=== PATIENT | male | born 1950 | race Caucasian/White ===

== ENCOUNTER 2018-03-01 11:58 | Inpatient (IN) ==
[2018-03-01] MEDS ORDERED: Naloxone 0.4 MG/ML INJ IVP PRN (15:19)
[2018-03-01] MEDS ORDERED: Ipratropium/Albuterol Neb 3 ML IH PRN (15:21)
[2018-03-01] MEDS ORDERED: *HR* Dextrose 50 % in Water (Syg) 50 ML SYRINGE IVP PRN ×2 (15:23→18:26)
[2018-03-01] MEDS ORDERED: Insulin Regular, Human 100 UNIT/ML IV PRN (15:23)
[2018-03-01] MEDS ORDERED: D5% in 0.45% NACL 1,000 ML IVC PRN (15:23)
[2018-03-01] MEDS ORDERED: D5% in 0.45% NACL w KCl 20 MEQ/1,000 ML MLS IVC PRN (15:23)
[2018-03-01] MEDS ORDERED: Insulin Human Regular 100 UNIT in 0.9 % Sodium Chloride 100 ML IVC SCH (15:30)
[2018-03-01] MEDS ORDERED: 0.9 % Sodium Chloride w KCl 20 MEQ/1,000 ML MLS IVC SCH ×2 (15:30→18:30)
--- NOTE | 2018-03-01 15:48 | Internal Med History&Physical ---
Date of Encounter: 03/01/18 Time of Encounter: 15:00 Internal Medicine - H&P: HPI Chief complaint: Nausea and dizziness Admitted From: Home Plans for Post Hospital Care: Home History of present illness: Mr. Mena is a 67 year old male presented to [facility] for lightheaded, nausea, and vomiting. Past medical history is significant for hx of CVA with left-sided residual weakness, hypertension, COPD, GERD. Patient has lightheaded and nausea today. He vomited once, no blood in the vomiting. Patient denies fever, sore throat, cough, chest pain, shortness of breath, abdominal pain, diarrhea, or urination symptoms. In the emergency room , he was found sugar level high to 800s. Further tests shows patient meet criteria of DKA. Patient was started with IV fluid and insulin drip and transferred to our hospital for further management. Patient denies history of diabetes. Patient denies recent symptoms of polyuria, polydipsia, or body weight change. I have discussed CODE STATUS with this patient. Patient is AAO 3 and clearly told me that he does not want resuscitation or intubation, DNR/DNI placed. Past Med Surg Social Fam HX - Past Medical History Medical history: COPD, DVT, GERD, hyperlipidemia, hypertension, other Additional medical history: cerebral abscess, ventriculitis, traumatic brain injury, malnutrition, ETOH abuse, meningitis, cholecystitis Psychiatric history: no psych history - Past Surgical History Surgical History: no surgical history - Social History Smoking Status: Former smoker Smokeless Tobacco Status: Yes Alcohol use: heavy Drug use: none - Family History Mother History Unknown: Yes Internal Medicine - H&P: Meds Albuterol Sulfate [Ventolin Hfa] 18 gm IH QID PRN 03/01/18 [History] Atorvastatin [Lipitor] 40 mg PO HS 03/01/18 [History] Duloxetine HCl [Cymbalta] 60 mg PO DAILY 03/01/18 [History] Fluticasone/Umeclidin/Vilanter [Trelegy Ellipta 100-62.5-25] 1 each IH DAILY [History] Gabapentin [Neurontin] 400 mg PO BID 03/01/18 [History] Mirtazapine [Remeron] 15 mg PO HS 03/01/18 [History] Tizanidine HCl [Zanaflex] 4 mg PO TID 03/01/18 [History] amLODIPine [Norvasc] 5 mg PO DAILY 03/01/18 [History] 3 Allergy/AdvReac Type Severity Reaction Status Date / Time No Known Allergies Allergy Verified 11/29/16 15:07 All Systems PM: A 10-system review of systems was performed and is negative for pertinent findings except as documented above in the HPI. - Constitutional Vitals: Temp Pulse Resp BP Pulse Ox 98.5 F 84 18 152/83 95 03/01/18 14:46 03/01/18 14:46 03/01/18 14:46 03/01/18 14:46 03/01/18 14:46 General appearance: Present: A&O X 3, no acute distress, answers questions appropriately Exam: In NAD - Head Head exam: Present: atraumatic, normocephalic - Eye Eye exam: Present: PERRL, conjuntiva pink, sclera anicteric Pupils: Present: PERRL - Neck Neck exam general surgery: Present: supple, trachea midline. Absent: lymphadenopathy - Respiratory Respiratory exam: Present: CTAB, wheezes (Scattered wheezes on left side). Absent: accessory muscle use, rales, rhonchi - Cardiovascular Cardiovascular exam: Present: RRR, +S1, +S2. Absent: diastolic murmur, gallop, rubs, systolic murmur - GI/Abdominal GI/Abdominal exam: Present: normal bowel sounds, soft, no peritoneal signs. Absent: distended, tenderness - Extremities Exam Extremities exam: Present: warm, radial pulses palpable and symmetrical. Absent : calf tenderness, cyanotic, pedal edema - Neurological Exam Neurological exam: Present: CN II-XII intact, motor sensory deficit (Has residual left-sided weakness due to prior CVA, LUE 3/5, LLE 4+/5), oriented X3, no focal deficits. Absent: pronater drift, facial droop, speech deficit - Skin Skin exam: Present: dry, intact - Assessment and plan (1) DKA (diabetic ketoacidoses) Current Visit: Yes Status: Acute Assessment and plan: Patient has high sugar level to 800s. Ketone positive. AG 16. Consider DKA. - Place patient on DKA protocol - IV fluid - Insulin drip - Check glucose level every hour - Check BMP every 4 hours - Closely monitor patient, potassium supplement per BMP results. - Nothing by mouth at this point Qualifiers: Diabetes mellitus type: type 2 Diabetes mellitus complication detail: without coma Qualified Code(s): E11.10 - Type 2 diabetes mellitus with ketoacidosis without coma (2) HTN (hypertension) Current Visit: Yes Status: Acute Assessment and plan: Place patient on hydralazine IV as needed. Resume home medication after start diet Qualifiers: Hypertension type: essential hypertension Qualified Code(s): I10 - Essential (primary) hypertension (3) History of CVA (cerebrovascular accident) Current Visit: Yes Status: Acute Assessment and plan: Continue home medications after verification. May add baby aspirin for antiplatelet. (4) COPD (chronic obstructive pulmonary disease) Current Visit: Yes Status: Acute Assessment and plan: No signs of exacerbation. Place patient on as needed DuoNeb. Qualifiers: COPD type: emphysema Emphysema type: unspecified Qualified Code(s): J43.9 - Emphysema, unspecified (5) GERD (gastroesophageal reflux disease) Current Visit: Yes Status: Acute Assessment and plan: Place patient on Protonix IV 40 mg daily Qualifiers: Esophagitis presence: without esophagitis Qualified Code(s): K21.9 - Gastro -esophageal reflux disease without esophagitis (6) DVT prophylaxis Current Visit: Yes Status: Acute Assessment and plan: Heparin subcutaneously (7) Hyperglycemia Current Visit: No Status: Acute Assessment and plan: No history of diabetes. High sugar level consider newly diagnosed diabetes. - Hemoglobin A1c - C-peptide - Nutrition consult for dietary education - Patient lives alone. Most likely need to start insulin. Consult PT OT and social security specialist. (8) Lactic acidosis Current Visit: No Status: Acute Assessment and plan: Possibly due to severe dehydration caused by DKA. No signs of infection at this point but will continue closely monitor patient. Continue hydration and repeat lactate acid level in 6 hours. - Time Spent With Patient Total time spent is greater than 50% in coordination of care (as documented) at patient's floor/unit and/or counseling patient: 40 minutes Greater than 35 minutes
[2018-03-01 16:46] LABS: BUN/Creatinine Ratio 13 (6-26); Blood Urea Nitrogen 12 mg/dL (8-23); Calcium 9.1 mg/dL (8.6-10.3); Carbon Dioxide 22 mEq/L (23-29); Chloride 109 mEq/L (98-107); Glucose 270 mg/dL (70-105); Osmolality,Calculated 303 (280-300); Potassium 3.4 mEq/L (3.5-5.1); Sodium 142 mEq/L (136-145); eGFR For Non-African Americans > 60 (> 60)
[2018-03-01] MEDS: *HR* Heparin 5,000 UNIT/ML VIAL SQ SCH (17:04)
[2018-03-01] MEDS: Pantoprazole 40 MG VIAL IVP SCH (17:04)
[2018-03-01] MEDS ORDERED: Dextrose Gel 15 GM/37.5 ML TUBE PO PRN ×2 (18:26)
[2018-03-01] MEDS ORDERED: D5% in Water 1,000 ML IVC PRN (18:26)
[2018-03-01] MEDS: Insulin LISPRO 300 UNITS/3 ML VIAL SQ SCH (20:36)
[2018-03-01] MEDS: Insulin DETEMIR 100 UNIT/ML X5UNITS SQ SCH ×2 (21:34→21:58)
[2018-03-02 04:41] LABS: Basophils # 0.1 K/mcL (0.0-0.2); Basophils % 0.6 %; Eosinophils # 0.7 K/mcL (0.0-0.6); Eosinophils % 6.5 %; Hematocrit 46.7 % (37.5-50.1); Hemoglobin 15.9 g/dL (12.9-16.9); Immature Granulocytes % 0.3 % (0-4); Lymphocytes # 2.7 K/mcL (0.6-4.6); Lymphocytes % 25.1 %; Mean Corpuscular Hemoglobin 28.2 pg (28.0-33.3); Mean Corpuscular Volume 82.8 fL (83.0-100.0); Mean Platelet Volume 10.9 fL (9.4-12.4); Monocytes # 0.7 K/mcL (0.0-1.3); Monocytes % 6.8 %; Neutrophils # 6.5 K/mcL (1.6-8.9); Platelet Count 310 K/mcL (140-400); Red Blood Count 5.64 M/mcL (4.19-5.50); Segmented Neutrophils % 60.7 %
[2018-03-02 05:04] LABS: Magnesium 1.9 mg/dL (1.6-2.6); Phosphorous 2.1 mg/dL (2.7-4.5)
[2018-03-02 05:05] LABS: BUN/Creatinine Ratio 12 (6-26); Blood Urea Nitrogen 9 mg/dL (8-23); Calcium 8.6 mg/dL (8.6-10.3); Carbon Dioxide 18 mEq/L (23-29); Chloride 111 mEq/L (98-107); Glucose 185 mg/dL (70-105); Osmolality,Calculated 293 (280-300); Potassium 3.3 mEq/L (3.5-5.1); Sodium 140 mEq/L (136-145); eGFR For Non-African Americans > 60 (> 60)
[2018-03-02] MEDS: *HR* Heparin 5,000 UNIT/ML VIAL SQ SCH ×2 (05:30→16:47)
[2018-03-02 07:19] LABS: Estimated Average Glucose 255 mg/dl; Hemoglobin A1C 10.5 %
[2018-03-02] MEDS: Patient Taking Own Medication 1 EACH IH SCH (08:00)
[2018-03-02] MEDS: Aspirin Enteric Coated 81 MG Tablet PO SCH (08:04)
[2018-03-02] MEDS: Insulin LISPRO 300 UNITS/3 ML VIAL SQ SCH ×4 (08:04→21:13)
[2018-03-02] MEDS: Pantoprazole 40 MG VIAL IVP SCH (08:04)
--- NOTE | 2018-03-02 11:50 | Internal Med Progress Note ---
Hospitalist Progress Note - Encounter Date of Encounter: 03/02/18 Time of Encounter: 09:00 - Subjective Interval History: Patient feels fine. No further nausea or vomiting. Denies abdominal pain. Denies lightheaded or dizziness. - Exam Vitals: Temp Pulse Resp BP Pulse Ox 98.5 F 80 18 122/85 96 03/02/18 11:13 03/02/18 11:13 03/02/18 11:13 03/02/18 11:13 03/02/18 11:13 Exam: Patient is awake alert oriented 3. In no acute distress. HEENT: NC/AT PERRL Neck: Supple, no LAD Lungs: CTA B/L Heart: S1S2, RRR Abd: Soft, NT Ext: No pedal edema Neuro: Left UE/LE residual weakness due to previous CVA - Assessment and Plan (1) DKA (diabetic ketoacidoses) Current Visit: Yes Status: Acute Assessment and Plan: Resolved after treatment. (2) HTN (hypertension) Current Visit: Yes Status: Acute Assessment and Plan: Cont home meds. (3) History of CVA (cerebrovascular accident) Current Visit: Yes Status: Acute Assessment and Plan: Continue home medications liptor, add baby aspirin (4) COPD (chronic obstructive pulmonary disease) Current Visit: Yes Status: Acute Assessment and Plan: No signs of exacerbation. Place patient on as needed DuoNeb. (5) GERD (gastroesophageal reflux disease) Current Visit: Yes Status: Acute Assessment and Plan: omeprazole 20mg po daily (6) DVT prophylaxis Current Visit: Yes Status: Acute Assessment and Plan: Heparin subcutaneously (7) Lactic acidosis Current Visit: No Status: Inactive Assessment and Plan: Resolved after hydration. (8) Newly diagnosed diabetes Current Visit: Yes Status: Acute Assessment and Plan: HbA1C 10.5. Consider newly diagnosed diabetes. - C-peptide is pending, glucose is well controlled on 15 units of Levemir and sliding scale. Most likely type 2 diabetes. - We will place patient on glipizide and metformin, continue sliding scale coverage at this point but plan to completely switched to by mouth medication after dosage adjustment. - Dietitian consult for diabetic education - RN for diabetic education. DVT Prophylaxis: Heparin subcutaneously - Time Spent with Patient Total time spent is greater than 50% in coordination of care (as documented) at patient's floor/unit and/or counseling patient: 30 minutes 25 - 35 minutes Plan of Care Discussed with: patient Internal Medicine: Result - Labs CBC & Chem 7: 03/02/18 04:03 03/02/18 04:03 Labs: Short CBC 03/02/18 Range/Units 04:03 WBC 10.7 (4.3-11.1) K/mcL Hgb 15.9 (12.9-16.9) g/dL Hct 46.7 (37.5-50.1) % Plt Count 310 (140-400) K/mcL Neutrophils # 6.5 (1.6-8.9) K/mcL BMP 03/01/18 03/02/18 16:03 04:03 Sodium 142 D 140 Potassium 3.4 L 3.3 L Chloride 109 H 111 H Carbon Dioxide 22 L 18 L BUN 12 9 Creatinine 0.96 0.76 Glucose 270 H 185 H Calcium 9.1 8.6 Consult Discharge Plan - Plan Referrals: Chloe Delgado MD [Primary Care Provider] - (Patient is from [facility] no PCP appointment needed) (1) DKA (diabetic ketoacidoses) Qualifiers: Diabetes mellitus type: type 2 Diabetes mellitus complication detail: without coma Qualified Code(s): E11.10 - Type 2 diabetes mellitus with ketoacidosis without coma (2) HTN (hypertension) Qualifiers: Hypertension type: essential hypertension Qualified Code(s): I10 - Essential (primary) hypertension (4) COPD (chronic obstructive pulmonary disease) Qualifiers: COPD type: emphysema Emphysema type: unspecified Qualified Code(s): J43.9 - Emphysema, unspecified (5) GERD (gastroesophageal reflux disease) Qualifiers: Esophagitis presence: without esophagitis Qualified Code(s): K21.9 - Gastro- esophageal reflux disease without esophagitis
[2018-03-02] MEDS: *HR* Metformin 500 MG TABLET PO SCH ×2 (11:57→16:46)
[2018-03-02] MEDS: *HR* GlipiZIDE 5 MG TABLET PO SCH ×2 (11:57→16:46)
[2018-03-03] MEDS: *HR* Heparin 5,000 UNIT/ML VIAL SQ SCH ×2 (06:02→16:25)
[2018-03-03 06:26] LABS: Basophils # 0.1 K/mcL (0.0-0.2); Basophils % 0.8 %; Eosinophils # 0.6 K/mcL (0.0-0.6); Eosinophils % 6.3 %; Hematocrit 44.6 % (37.5-50.1); Hemoglobin 15.3 g/dL (12.9-16.9); Immature Granulocytes % 0.3 % (0-4); Lymphocytes # 3.1 K/mcL (0.6-4.6); Lymphocytes % 31.9 %; Mean Corpuscular HGB Conc 34.3 g/dL (31.6-35.5); Mean Corpuscular Hemoglobin 27.5 pg (28.0-33.3); Mean Corpuscular Volume 80.2 fL (83.0-100.0); Mean Platelet Volume 10.4 fL (9.4-12.4); Monocytes # 0.6 K/mcL (0.0-1.3); Monocytes % 6.4 %; Neutrophils # 5.2 K/mcL (1.6-8.9); Platelet Count 305 K/mcL (140-400); Red Blood Count 5.56 M/mcL (4.19-5.50); Red Cell Distribution Width 14.3 % (11.5-14.5); Segmented Neutrophils % 54.3 %
[2018-03-03 06:44] LABS: BUN/Creatinine Ratio 15 (6-26); Blood Urea Nitrogen 12 mg/dL (8-23); Calcium 8.9 mg/dL (8.6-10.3); Carbon Dioxide 17 mEq/L (23-29); Chloride 110 mEq/L (98-107); Glucose 235 mg/dL (70-105); Osmolality,Calculated 293 (280-300); Potassium 3.4 mEq/L (3.5-5.1); Sodium 138 mEq/L (136-145); eGFR For Non-African Americans > 60 (> 60)
[2018-03-03] MEDS ORDERED: *HR* Metformin 850 MG TABLET PO SCH (08:00)
[2018-03-03] MEDS ORDERED: *HR* GlipiZIDE XL (24 HR) 2.5 MG TABLET PO SCH (08:00)
[2018-03-03] MEDS: Aspirin Enteric Coated 81 MG Tablet PO SCH (08:12)
[2018-03-03] MEDS: amLODIPine 5 MG TABLET PO SCH (08:12)
[2018-03-03] MEDS: Insulin LISPRO 300 UNITS/3 ML VIAL SQ SCH ×4 (08:14→20:27)
[2018-03-03] MEDS: Patient Taking Own Medication 1 EACH IH SCH (08:15)
--- NOTE | 2018-03-03 09:41 | Internal Med Progress Note ---
Hospitalist Progress Note - Encounter Date of Encounter: 03/03/18 Time of Encounter: 08:00 - Subjective Interval History: Patient has diarrhea and abd cramping. Will D/C metformin, change to januvia. - Exam Vitals: Temp Pulse Resp BP Pulse Ox 98.8 F 72 18 137/85 94 03/03/18 08:05 03/03/18 08:05 03/03/18 08:05 03/03/18 08:05 03/03/18 08:05 Exam: Patient is awake alert oriented 3. In no acute distress. HEENT: NC/AT PERRL Neck: Supple, no LAD Lungs: CTA B/L Heart: S1S2, RRR Abd: Soft, NT, BS hyperactive Ext: No pedal edema Neuro: Left UE/LE residual weakness due to previous CVA - Assessment and Plan (1) DKA (diabetic ketoacidoses) Current Visit: Yes Status: Acute Assessment and Plan: Resolved after treatment. (2) HTN (hypertension) Current Visit: Yes Status: Acute Assessment and Plan: Cont home meds. (3) History of CVA (cerebrovascular accident) Current Visit: Yes Status: Acute Assessment and Plan: Continue home medications liptor, add baby aspirin. PT/OT evaluation for placement. (4) COPD (chronic obstructive pulmonary disease) Current Visit: Yes Status: Acute Assessment and Plan: No signs of exacerbation. Place patient on as needed DuoNeb. (5) GERD (gastroesophageal reflux disease) Current Visit: Yes Status: Acute Assessment and Plan: omeprazole 20mg po daily (6) DVT prophylaxis Current Visit: Yes Status: Acute Assessment and Plan: Heparin subcutaneously (7) Lactic acidosis Current Visit: No Status: Inactive Assessment and Plan: Resolved after hydration. (8) Newly diagnosed diabetes Current Visit: Yes Status: Acute Assessment and Plan: HbA1C 10.5. Consider newly diagnosed diabetes. - C-peptide is pending, glucose is generally well controlled on po meds and sliding scale. Most likely type 2 diabetes. - Seems not tolerate metformin, switch to januvia. Adjust dose of glipizide, continue sliding scale coverage at this point but plan to completely switched to by mouth medication after dosage adjustment. - Dietitian consult for diabetic education - RN for diabetic education. DVT Prophylaxis: Heparin subcutaneously - Time Spent with Patient Total time spent is greater than 50% in coordination of care (as documented) at patient's floor/unit and/or counseling patient: 30min 25 - 35 minutes Internal Medicine: Result - Labs CBC & Chem 7: 03/03/18 06:12 03/03/18 06:12 Labs: Short CBC 03/03/18 Range/Units 06:12 WBC 9.6 (4.3-11.1) K/mcL Hgb 15.3 (12.9-16.9) g/dL Hct 44.6 (37.5-50.1) % Plt Count 305 (140-400) K/mcL Neutrophils # 5.2 (1.6-8.9) K/mcL BMP 03/03/18 06:12 Sodium 138 Potassium 3.4 L Chloride 110 H Carbon Dioxide 17 L BUN 12 Creatinine 0.82 Glucose 235 H Calcium 8.9 Consult Discharge Plan - Plan Referrals: Chloe Delgado MD [Primary Care Provider] - (Patient is from [facility] no PCP appointment needed) (1) DKA (diabetic ketoacidoses) Qualifiers: Diabetes mellitus type: type 2 Diabetes mellitus complication detail: without coma Qualified Code(s): E11.10 - Type 2 diabetes mellitus with ketoacidosis without coma (2) HTN (hypertension) Qualifiers: Hypertension type: essential hypertension Qualified Code(s): I10 - Essential (primary) hypertension (4) COPD (chronic obstructive pulmonary disease) Qualifiers: COPD type: emphysema Emphysema type: unspecified Qualified Code(s): J43.9 - Emphysema, unspecified (5) GERD (gastroesophageal reflux disease) Qualifiers: Esophagitis presence: without esophagitis Qualified Code(s): K21.9 - Gastro- esophageal reflux disease without esophagitis
[2018-03-03] MEDS: *HR* SitaGLIPtin 25 MG TABLET PO SCH (10:48)
[2018-03-03 16:18] LABS: Bilirubin,Urine Negative (Negative); Blood,Urine Moderate (Negative); Clarity,Urine Clear (Clear); Color,Urine Yellow (Yellow); Glucose,Urine (UA) 250 mg/dL (Normal); Ketones,Urine 15 mg/dL (Negative); Leukocyte Esterase,Urine Moderate (Negative); Nitrite,Urine Negative (Negative); PH,Urine 5.5 pH Units (5.0-8.0); Protein,Urine 100 mg/dL (Neg-Trace); Specific Gravity,Urine > 1.030 (1.010-1.025); Urobilinogen,Urine Normal (Normal)
[2018-03-03 16:20] LABS: Bacteria,Urine None Seen per hpf (None-Few); Hyaline Casts,Urine Few per lpf (None-Few); Squamous Epithelial Cell,Urine Many per lpf (None-Few); WBC,Urine 50-100 per hpf (0-3)
[2018-03-03] MEDS: levoFLOXacin 750 MG TABLET PO SCH (20:24)
[2018-03-04 03:49] LABS: Basophils # 0.1 K/mcL (0.0-0.2); Basophils % 0.8 %; Eosinophils # 0.6 K/mcL (0.0-0.6); Eosinophils % 7.3 %; Hematocrit 45.1 % (37.5-50.1); Hemoglobin 15.1 g/dL (12.9-16.9); Immature Granulocytes % 0.3 % (0-4); Lymphocytes # 3.2 K/mcL (0.6-4.6); Lymphocytes % 36.5 %; Mean Corpuscular HGB Conc 33.5 g/dL (31.6-35.5); Mean Corpuscular Hemoglobin 27.5 pg (28.0-33.3); Mean Corpuscular Volume 82.1 fL (83.0-100.0); Monocytes # 0.6 K/mcL (0.0-1.3); Monocytes % 6.9 %; Neutrophils # 4.2 K/mcL (1.6-8.9); Platelet Count 309 K/mcL (140-400); Red Blood Count 5.49 M/mcL (4.19-5.50); Red Cell Distribution Width 13.9 % (11.5-14.5); Segmented Neutrophils % 48.2 %
[2018-03-04 04:07] LABS: BUN/Creatinine Ratio 13 (6-26); Blood Urea Nitrogen 12 mg/dL (8-23); Calcium 8.6 mg/dL (8.6-10.3); Carbon Dioxide 21 mEq/L (23-29); Chloride 107 mEq/L (98-107); Glucose 282 mg/dL (70-105); Osmolality,Calculated 296 (280-300); Potassium 3.5 mEq/L (3.5-5.1); Sodium 138 mEq/L (136-145); eGFR For Non-African Americans > 60 (> 60)
[2018-03-04] MEDS: *HR* Heparin 5,000 UNIT/ML VIAL SQ SCH ×2 (04:23→16:04)
[2018-03-04] MEDS ORDERED: *HR* GlipiZIDE XL (24 HR) 2.5 MG TABLET PO SCH (08:00)
[2018-03-04] MEDS: Aspirin Enteric Coated 81 MG Tablet PO SCH (08:05)
[2018-03-04] MEDS: *HR* SitaGLIPtin 25 MG TABLET PO SCH (08:05)
[2018-03-04] MEDS: amLODIPine 5 MG TABLET PO SCH (08:05)
[2018-03-04] MEDS: Insulin LISPRO 300 UNITS/3 ML VIAL SQ SCH ×4 (08:06→19:55)
[2018-03-04] MEDS: *HR* GlipiZIDE XL (24 HR) 2.5 MG TABLET PO SCH (08:06)
[2018-03-04] MEDS: levoFLOXacin 750 MG TABLET PO SCH (08:07)
[2018-03-04] MEDS: Patient Taking Own Medication 1 EACH IH SCH (08:07)
--- NOTE | 2018-03-04 12:00 | Internal Med Progress Note ---
Hospitalist Progress Note - Encounter Date of Encounter: 03/04/18 Time of Encounter: 08:00 - Subjective Interval History: Pt c/o nausea and mild abd pain. Diarrhea stopped. Poor intake. Doesn't want to walk. - Exam Vitals: Temp Pulse Resp BP Pulse Ox 98.3 F 75 18 132/76 95 03/04/18 11:11 03/04/18 11:11 03/04/18 11:11 03/04/18 11:11 03/04/18 11:11 Exam: Patient is awake alert oriented 3. In no acute distress. HEENT: NC/AT PERRL Neck: Supple, no LAD Lungs: CTA B/L Heart: S1S2, RRR Abd: Soft, mild tenderness w/o rebound or guarding. Ext: No pedal edema Neuro: Left UE/LE residual weakness due to previous CVA - Assessment and Plan (1) DKA (diabetic ketoacidoses) Current Visit: Yes Status: Acute Assessment and Plan: Resolved after treatment. (2) HTN (hypertension) Current Visit: Yes Status: Acute Assessment and Plan: Cont home meds. (3) History of CVA (cerebrovascular accident) Current Visit: Yes Status: Acute Assessment and Plan: Continue home medications liptor, add baby aspirin. PT/OT evaluation for placement. (4) COPD (chronic obstructive pulmonary disease) Current Visit: Yes Status: Acute Assessment and Plan: No signs of exacerbation. Place patient on as needed DuoNeb. (5) GERD (gastroesophageal reflux disease) Current Visit: Yes Status: Acute Assessment and Plan: omeprazole 20mg po daily (6) DVT prophylaxis Current Visit: Yes Status: Acute Assessment and Plan: Heparin subcutaneously (7) Newly diagnosed diabetes Current Visit: Yes Status: Acute Assessment and Plan: HbA1C 10.5. Consider newly diagnosed diabetes. - C-peptide is pending, glucose is generally well controlled on po meds and sliding scale. Most likely type 2 diabetes. - Will try to control sugar level with po meds. - Adjust dose of glipizide and januvia, continue sliding scale coverage at this point but plan to completely switched to by mouth medication after dosage adjustment. - Dietitian consult for diabetic education - RN for diabetic education. (8) UTI (urinary tract infection) Current Visit: Yes Status: Acute Assessment and Plan: Pt c/o burning on urination to nurse yesterday. UA shows positive. Po levaquin started for uncomplicated UTI. (9) Abdominal pain Current Visit: Yes Status: Acute Assessment and Plan: CT abd done, unremarkable. Pt is on depression meds at home, ask pharmacy to verify meds and restart. DVT Prophylaxis: Heparin SC - Time Spent with Patient Total time spent is greater than 50% in coordination of care (as documented) at patient's floor/unit and/or counseling patient: 30 min 25 - 35 minutes Plan of Care Discussed with: patient Internal Medicine: Result - Labs CBC & Chem 7: 03/04/18 03:09 03/04/18 03:09 Labs: Short CBC 03/04/18 Range/Units 03:09 WBC 8.6 (4.3-11.1) K/mcL Hgb 15.1 (12.9-16.9) g/dL Hct 45.1 (37.5-50.1) % Plt Count 309 (140-400) K/mcL Neutrophils # 4.2 (1.6-8.9) K/mcL BMP 03/04/18 03:09 Sodium 138 Potassium 3.5 Chloride 107 Carbon Dioxide 21 L BUN 12 Creatinine 0.92 Glucose 282 H Calcium 8.6 Urine 03/03/18 Range/Units 16:05 Urine Color Yellow (Yellow) Urine Clarity Clear (Clear) Urine pH 5.5 (5.0-8.0) pH Units Ur Specific [place] > 1.030 H (1.010-1.025) Urine Protein 100 H (Neg-Trace) mg/dL Urine Glucose (UA) 250 H (Normal) mg/dL - Impressions Impressions Abdomen/Pelvis CT 03/04/18 09:11 IMPRESSION: 1. Diverticulosis. 2. Right lower lobe bronchiolitis. 3. Cholecystectomy. D/ / 03/04/2018 10:47:28 Peng Correa MD / brina Interpreting Provider: Peng Correa MD Consult Discharge Plan - Plan Referrals: Chloe Delgado MD [Primary Care Provider] - (Patient is from [facility] no PCP appointment needed) (1) DKA (diabetic ketoacidoses) Qualifiers: Diabetes mellitus type: type 2 Diabetes mellitus complication detail: without coma Qualified Code(s): E11.10 - Type 2 diabetes mellitus with ketoacidosis without coma (2) HTN (hypertension) Qualifiers: Hypertension type: essential hypertension Qualified Code(s): I10 - Essential (primary) hypertension (4) COPD (chronic obstructive pulmonary disease) Qualifiers: COPD type: emphysema Emphysema type: unspecified Qualified Code(s): J43.9 - Emphysema, unspecified (5) GERD (gastroesophageal reflux disease) Qualifiers: Esophagitis presence: without esophagitis Qualified Code(s): K21.9 - Gastro- esophageal reflux disease without esophagitis (8) UTI (urinary tract infection) Qualifiers: Urinary tract infection type: acute cystitis Hematuria presence: without hematuria Qualified Code(s): N30.00 - Acute cystitis without hematuria (9) Abdominal pain Qualifiers: Abdominal location: generalized Qualified Code(s): R10.84 - Generalized abdominal pain
[2018-03-04] MEDS: Mirtazapine 15 MG TABLET PO SCH (19:55)
[2018-03-05 04:40] LABS: BUN/Creatinine Ratio 13 (6-26); Blood Urea Nitrogen 12 mg/dL (8-23); Carbon Dioxide 22 mEq/L (23-29); Chloride 107 mEq/L (98-107); Glucose 235 mg/dL (70-105); Osmolality,Calculated 291 (280-300); Potassium 3.5 mEq/L (3.5-5.1); Sodium 137 mEq/L (136-145); eGFR For Non-African Americans > 60 (> 60)
[2018-03-05] MEDS: *HR* Heparin 5,000 UNIT/ML VIAL SQ SCH ×2 (06:18→16:52)
[2018-03-05] MEDS: Patient Taking Own Medication 1 EACH IH SCH (07:53)
[2018-03-05] MEDS: *HR* SitaGLIPtin 25 MG TABLET PO SCH (08:16)
[2018-03-05] MEDS: Aspirin Enteric Coated 81 MG Tablet PO SCH (08:16)
[2018-03-05] MEDS: Insulin LISPRO 300 UNITS/3 ML VIAL SQ SCH ×4 (08:16→21:11)
[2018-03-05] MEDS: amLODIPine 5 MG TABLET PO SCH (08:16)
[2018-03-05] MEDS: *HR* GlipiZIDE XL (24 HR) 2.5 MG TABLET PO SCH (08:17)
[2018-03-05] MEDS: levoFLOXacin 750 MG TABLET PO SCH (08:17)
[2018-03-05] MEDS ORDERED: Ondansetron 4 MG/2 ML VIAL IVP PRN (10:25)
--- NOTE | 2018-03-05 10:39 | Internal Med Progress Note ---
Hospitalist Progress Note - Encounter Date of Encounter: 03/05/18 Time of Encounter: 09:00 - Subjective Interval History: Pt still c/o nausea and mild abd pain. No BM. Poor intake. Seems depressed. - Exam Vitals: Temp Pulse Resp BP Pulse Ox 98.3 F 63 16 115/54 94 03/05/18 08:15 03/05/18 08:15 03/05/18 08:15 03/05/18 08:15 03/05/18 08:15 Exam: Patient is awake alert oriented 3. In no acute distress. HEENT: NC/AT PERRL Neck: Supple, no LAD Lungs: CTA B/L Heart: S1S2, RRR Abd: Soft, mild tenderness w/o rebound or guarding. Ext: No pedal edema Neuro: Left UE/LE residual weakness due to previous CVA - Assessment and Plan (1) DKA (diabetic ketoacidoses) Current Visit: Yes Status: Acute Assessment and Plan: Resolved after treatment. (2) HTN (hypertension) Current Visit: Yes Status: Acute Assessment and Plan: Cont home meds. (3) History of CVA (cerebrovascular accident) Current Visit: Yes Status: Acute Assessment and Plan: Continue home medications liptor, add baby aspirin. (4) COPD (chronic obstructive pulmonary disease) Current Visit: Yes Status: Acute Assessment and Plan: No signs of exacerbation. Place patient on as needed DuoNeb. (5) GERD (gastroesophageal reflux disease) Current Visit: Yes Status: Acute Assessment and Plan: omeprazole 20mg po daily (6) DVT prophylaxis Current Visit: Yes Status: Acute Assessment and Plan: Heparin subcutaneously (7) Newly diagnosed diabetes Current Visit: Yes Status: Acute Assessment and Plan: HbA1C 10.5. Consider newly diagnosed diabetes. - C-peptide is pending, glucose is still high on po meds and sliding scale. Most likely type 2 diabetes. - Pt said he can inject insulin by himself but compliance is my concern. Will try to control sugar level with po meds. But if have to change back to insulin will restart insulin. - Adjust dose of glipizide and januvia, continue sliding scale coverage at this point but plan to completely switched to by mouth medication after dosage adjustment. - Dietitian consult for diabetic education - RN for diabetic education. (8) UTI (urinary tract infection) Current Visit: Yes Status: Acute Assessment and Plan: Pt c/o burning on urination to nurse yesterday. UA shows positive. Po levaquin started for uncomplicated UTI. (9) Abdominal pain Current Visit: Yes Status: Acute Assessment and Plan: CT abd done, unremarkable. Pt is on depression meds at home, ask pharmacy to verify meds and restart. DVT Prophylaxis: Heparin SC - Time Spent with Patient Total time spent is greater than 50% in coordination of care (as documented) at patient's floor/unit and/or counseling patient: 30 min 25 - 35 minutes Plan of Care Discussed with: patient Internal Medicine: Result - Labs CBC & Chem 7: 03/04/18 03:09 03/05/18 03:39 Labs: BMP 03/05/18 03:39 Sodium 137 Potassium 3.5 Chloride 107 Carbon Dioxide 22 L BUN 12 Creatinine 0.89 Glucose 235 H Calcium 9.0 - Impressions Impressions Abdomen/Pelvis CT 03/04/18 09:11 IMPRESSION: 1. Diverticulosis. 2. Right lower lobe bronchiolitis. 3. Cholecystectomy. D/ / 03/04/2018 10:47:28 Peng Correa MD / brina Interpreting Provider: Peng Correa MD Consult Discharge Plan - Plan Referrals: Chloe Delgado MD [Primary Care Provider] - (Patient is from [facility] no PCP appointment needed) (1) DKA (diabetic ketoacidoses) Qualifiers: Diabetes mellitus type: type 2 Diabetes mellitus complication detail: without coma Qualified Code(s): E11.10 - Type 2 diabetes mellitus with ketoacidosis without coma (2) HTN (hypertension) Qualifiers: Hypertension type: essential hypertension Qualified Code(s): I10 - Essential (primary) hypertension (4) COPD (chronic obstructive pulmonary disease) Qualifiers: COPD type: emphysema Emphysema type: unspecified Qualified Code(s): J43.9 - Emphysema, unspecified (5) GERD (gastroesophageal reflux disease) Qualifiers: Esophagitis presence: without esophagitis Qualified Code(s): K21.9 - Gastro- esophageal reflux disease without esophagitis (8) UTI (urinary tract infection) Qualifiers: Urinary tract infection type: acute cystitis Hematuria presence: without hematuria Qualified Code(s): N30.00 - Acute cystitis without hematuria (9) Abdominal pain Qualifiers: Abdominal location: generalized Qualified Code(s): R10.84 - Generalized abdominal pain
--- NOTE | 2018-03-05 14:44 | Event Note ---
Date of Encounter: 03/05/18 Time of Encounter: 14:00 Per pharmacy, pt is supposed to take psych medications but he never takes these meds recently (no hx of taking meds from pharmacy), which might explain why he looks so depressed. Medication restarted.
[2018-03-05] MEDS: Mirtazapine 15 MG TABLET PO SCH (21:10)
[2018-03-06] MEDS: *HR* Heparin 5,000 UNIT/ML VIAL SQ SCH (05:11)
[2018-03-06 05:44] LABS: Basophils # 0.1 K/mcL (0.0-0.2); Basophils % 1.1 %; Eosinophils # 0.6 K/mcL (0.0-0.6); Eosinophils % 8.4 %; Hematocrit 43.5 % (37.5-50.1); Hemoglobin 14.4 g/dL (12.9-16.9); Immature Granulocytes % 0.2 % (0-4); Lymphocytes # 2.3 K/mcL (0.6-4.6); Lymphocytes % 34.6 %; Mean Corpuscular HGB Conc 33.1 g/dL (31.6-35.5); Mean Corpuscular Hemoglobin 27.9 pg (28.0-33.3); Mean Corpuscular Volume 84.3 fL (83.0-100.0); Mean Platelet Volume 10.7 fL (9.4-12.4); Monocytes # 0.6 K/mcL (0.0-1.3); Monocytes % 9.8 %; Platelet Count 279 K/mcL (140-400); Red Blood Count 5.16 M/mcL (4.19-5.50); Red Cell Distribution Width 14.4 % (11.5-14.5); Segmented Neutrophils % 45.9 %
[2018-03-06 06:05] LABS: BUN/Creatinine Ratio 17 (6-26); Blood Urea Nitrogen 15 mg/dL (8-23); Calcium 8.7 mg/dL (8.6-10.3); Carbon Dioxide 21 mEq/L (23-29); Chloride 106 mEq/L (98-107); Glucose 281 mg/dL (70-105); Osmolality,Calculated 293 (280-300); Potassium 3.6 mEq/L (3.5-5.1); Sodium 136 mEq/L (136-145); eGFR For Non-African Americans > 60 (> 60)
[2018-03-06] MEDS: Insulin LISPRO 300 UNITS/3 ML VIAL SQ SCH ×2 (07:31→11:50)
[2018-03-06] MEDS: levoFLOXacin 750 MG TABLET PO SCH (07:32)
[2018-03-06] MEDS: *HR* SitaGLIPtin 25 MG TABLET PO SCH (07:32)
[2018-03-06] MEDS: amLODIPine 5 MG TABLET PO SCH (07:32)
[2018-03-06] MEDS: Aspirin Enteric Coated 81 MG Tablet PO SCH (07:32)
[2018-03-06 10:54] VITALS: BP 123/72
[2018-03-06] MEDS ORDERED: Insulin DETEMIR 100 UNIT/ML X5UNITS SQ ONE (12:10)
--- NOTE | 2018-03-06 12:40 | Discharge Summary ---
- NOTES TO OUTPATIENT PROVIDER Notes to Outpatient Provider: Patient with hx of CVA , Depression admitted for newly diagnosed DM with A1C 10.5 and DKA. He is discharged home with insulin ( levemir) daily with his largest meal, and glucose monitoring supplies. He is also discharged with home health nursing, aide and physical therapy. Follow up with PCP for repeat A1C as well as management of depression, he denies suicidal ideations while in-patient, medications have been resumed. He also has suspected UTI, discharged on levaquin po Orders not resulted at time of discharge: Pending orders 03/07/18 04:00 Culture,Urine [RM] AM 0400 Date of Encounter: 03/06/18 Time of Encounter: 12:39 - Discharge Diagnosis (1) DKA (diabetic ketoacidoses) Priority: Primary Status: Resolved Qualifiers: Diabetes mellitus type: type 2 Diabetes mellitus complication detail: without coma Qualified Code(s): E11.10 - Type 2 diabetes mellitus with ketoacidosis without coma (2) HTN (hypertension) Priority: Secondary Status: Chronic Qualifiers: Hypertension type: essential hypertension Qualified Code(s): I10 - Essential (primary) hypertension (3) History of CVA (cerebrovascular accident) Priority: Secondary Status: Chronic (4) COPD (chronic obstructive pulmonary disease) Priority: Secondary Status: Chronic Qualifiers: COPD type: emphysema Emphysema type: unspecified Qualified Code(s): J43.9 - Emphysema, unspecified (5) GERD (gastroesophageal reflux disease) Priority: Secondary Status: Chronic Qualifiers: Esophagitis presence: without esophagitis Qualified Code(s): K21.9 - Gastro -esophageal reflux disease without esophagitis (6) DVT prophylaxis Priority: Primary Status: Resolved (7) Newly diagnosed diabetes Priority: Primary Status: Acute (8) UTI (urinary tract infection) Priority: Primary Status: Suspected Qualifiers: Urinary tract infection type: acute cystitis Hematuria presence: without hematuria Qualified Code(s): N30.00 - Acute cystitis without hematuria (9) Abdominal pain Priority: Primary Status: Resolved Qualifiers: Abdominal location: generalized Qualified Code(s): R10.84 - Generalized abdominal pain Hospital course: Mr. Mena is a 67 year old male with PMH of CVA with residual LUE weakness, COPD, GERD, HTN, who was admitted and managed for newly diagnosed DM with A1C 10.5, as well as DKA on admission. He has made significant improvement with insulin inpatient, as well as oral hypoglycemics Of note, patient noted to be depressed while inpatient, patient denied suicidal ideation and had been prescribed antidepressants by PCP but was not taking them. He has been restarted on his home medications for depression He is educated extensively on the diagnosis of DM and dietary and lifetyle modification as well as the need for insulin and risk of hypoglycemia The patient reported he has one main meal daily and snacks all day, recommended low dose insulin with his largest meal daily as well as po Januvia. Home health services including daily nursing set up for the patient, as well as supplies for blood glucose monitoring Follow up with PCP as out-patient for insulin adjustments with log Plan of care discussed with patient who verbalized understanding Discharge discussed with: patient, nurse, social work, case management Time spent discussing smoking cessation with patient: 3 to 10 minutes - Time Spent with Patient Total time spent providing and/or coordinating discharge services: Greater than 30 minutes (45 mins spent on patient encounter, education, med rec , discussion with case checker and SW, as well as documentation) - Discharge Medications Prescriptions: amLODIPine [Norvasc] 5 mg PO DAILY #30 tablet Aspirin Enteric Coated [Aspirin EC] 81 mg PO DAILY #30 tablet. Atorvastatin [Lipitor] 40 mg PO HS #30 tablet Blood Sugar Diagnostic [Glucose Test Strip] 1 each MC DAILY #60 strip Blood-Glucose Meter [Blood Glucose Monitoring] 1 each MC DAILY #1 kit Duloxetine HCl [Cymbalta] 60 mg PO DAILY #30 capsule. Fluticasone/Umeclidin/Vilanter [Trelegy Ellipta 100-62.5-25] 1 each DAILY #1 blst.w.dev Gabapentin [Neurontin] 400 mg PO BID #60 capsule Insulin DETEMIR [Levemir] 5 unit SQ HS #1 vial Lancets [Blood Lancets] 1 each MC DAILY #30 each levoFLOXacin [Levaquin] 750 mg PO DAILY #10 tablet Mirtazapine [Remeron] 15 mg PO HS #30 tablet SitaGLIPtin [Januvia] 100 mg PO DAILY #60 tablet Syrge-Ndl,Ins 0.3 ml Half Estevan [Insulin Syringe] 1 each MC DAILY #60 disp.syrin Home Medications: Albuterol Sulfate [Ventolin Hfa] 2 puff IH QID PRN 03/01/18 [History] Aspirin Enteric Coated [Aspirin EC] 81 mg PO DAILY #30 tablet. 03/06/18 [Rx] Atorvastatin [Lipitor] 40 mg PO HS #30 tablet 03/06/18 [Rx] Blood Sugar Diagnostic [Glucose Test Strip] 1 each DAILY #60 strip 03/06/18 [ Rx] Blood-Glucose Meter [Blood Glucose Monitoring] 1 each DAILY #1 kit 03/06/18 [ Rx] Duloxetine HCl [Cymbalta] 60 mg PO DAILY #30 capsule. 03/06/18 [Rx] Fluticasone/Umeclidin/Vilanter [Trelegy Ellipta 100-62.5-25] 1 each DAILY #1 blst.w.dev 03/06/18 [Rx] Gabapentin [Neurontin] 400 mg PO BID #60 capsule 03/06/18 [Rx] Insulin DETEMIR [Levemir] 5 unit SQ HS #1 vial 03/06/18 [Rx] Lancets [Blood Lancets] 1 each DAILY #30 each 03/06/18 [Rx] Mirtazapine [Remeron] 15 mg PO HS #30 tablet 03/06/18 [Rx] SitaGLIPtin [Januvia] 100 mg PO DAILY #60 tablet 03/06/18 [Rx] Syrge-Ndl,Ins 0.3 ml Half Estevan [Insulin Syringe] 1 each MC DAILY #60 disp.syrin 03/06/18 [Rx] amLODIPine [Norvasc] 5 mg PO DAILY #30 tablet 03/06/18 [Rx] levoFLOXacin [Levaquin] 750 mg PO DAILY #10 tablet 03/06/18 [Rx] Allergies/Adverse Reactions: 3 Allergy/AdvReac Type Severity Reaction Status Date / Time No Known Allergies Allergy Verified 11/29/16 15:07 Date of admission: 03/01/18 18:02 Primary care physician: Chloe Delgado Consults: 03/01/18 15:23 Consult for Pharmacy Education [CONS] Routine Reason for Consult: DKA Call Completed: No Consult to Promotional Representative [CONS] Routine Reason for SW Consult: Pt has new DM, may need to start insulin 03/01/18 15:32 Consult to Nutrition [CONS] Routine Comment: New diagnosed DM Consulting Provider: NUTRITION Reason for Dietary Consult: Diet Education Consult to Physical Therapy [CONS] Routine Comment: Evaluate, develop and implement POC Reason for Consult: Hx of CVA, new diagnosed DM, may need to start insulin Does patient have active BEDREST order?: No Is patient medically & hemodynamically stable?: Yes Discharging clinician: José Miguel Wyatt Anticipated date of discharge: 03/06/18 - Constitutional Vitals: Temp Pulse Resp BP Pulse Ox 98.3 F 69 20 123/72 94 03/06/18 11:30 03/06/18 11:30 03/06/18 11:30 03/06/18 11:30 03/06/18 11:30 General appearance: Present: A&O X 3, pleasant, no acute distress, answers questions appropriately Exam: See below - Head Head exam: Present: atraumatic, normocephalic - Eye Eye exam: Present: PERRL, conjuntiva pink, sclera anicteric Pupils: Present: PERRL - Neck Neck exam general surgery: Present: supple, trachea midline. Absent: lymphadenopathy - Respiratory Respiratory exam: Present: CTAB. Absent: accessory muscle use, rales, rhonchi, wheezes - Cardiovascular Cardiovascular exam: Present: RRR, +S1, +S2. Absent: diastolic murmur, gallop, rubs, systolic murmur - GI/Abdominal GI/Abdominal exam: Present: normal bowel sounds, soft, no peritoneal signs. Absent: distended, tenderness - Extremities Exam Extremities exam: Present: warm, radial pulses palpable and symmetrical. Absent : calf tenderness, cyanotic, pedal edema Additional comments: L hand contracture - Neurological Exam Neurological exam: Present: CN II-XII intact, oriented X3, no focal deficits. Absent: pronater drift, facial droop, speech deficit - Skin Skin exam: Present: dry, intact - Patient Status Disposition: Home Health Service Condition: Good Functional capacity at discharge: independent ambulation Overall status at discharge: patient is progressing back to baseline - Discharge Instructions Instructions: Levofloxacin (By mouth), Diabetes Mellitus Type 2 in Adults (DC) Follow Up With: Taryn Avina CNP [Advanced Practice Nurse] - 03/08/18 2:20 pm - Diet and Activity Activity: resume usual activities as tolerated Diet: diabetic diet
--- NOTE | 2018-03-06 12:43 | Physician Discharge Referral ---
Home Health/Hosp Referral Info Transfer to: Home Health Attending Provider: Gonzalo Wyatt Provider in Charge Post Discharge: PCP - Diagnosis (1) DKA (diabetic ketoacidoses) Priority: Primary Status: Resolved (2) HTN (hypertension) Priority: Secondary Status: Chronic (3) History of CVA (cerebrovascular accident) Priority: Primary Status: Chronic (4) COPD (chronic obstructive pulmonary disease) Priority: Secondary Status: Chronic (5) GERD (gastroesophageal reflux disease) Priority: Secondary Status: Chronic (6) DVT prophylaxis Priority: Primary Status: Resolved (7) Newly diagnosed diabetes Priority: Primary Status: Acute (8) UTI (urinary tract infection) Priority: Primary Status: Acute (9) Abdominal pain Priority: Primary Status: Acute - Respiratory Orders Smoking Cessation: Smoking cessation has been advised. For more information, call the [employer] Quit Line at 1-165-HCJJ-NOW. - Diet/Nutrition Diet/Nutrition Orders: No Concentrated Sweets - Activity Activity Orders: Up ad lisa - Services Needed Following services are medically necessary services: Nursing (Daily nursing care and DM Education for the next 7 days, then as directed by medicare.), Home Health Aide - Transfer Medications Prescriptions: amLODIPine [Norvasc] 5 mg PO DAILY #30 tablet Aspirin Enteric Coated [Aspirin EC] 81 mg PO DAILY #30 tablet. Atorvastatin [Lipitor] 40 mg PO HS #30 tablet Blood Sugar Diagnostic [Glucose Test Strip] 1 each DAILY #60 strip Blood-Glucose Meter [Blood Glucose Monitoring] 1 each MC DAILY #1 kit Duloxetine HCl [Cymbalta] 60 mg PO DAILY #30 capsule. Fluticasone/Umeclidin/Vilanter [Trelegy Ellipta 100-62.5-25] 1 each DAILY #1 blst.w.dev Gabapentin [Neurontin] 400 mg PO BID #60 capsule Insulin DETEMIR [Levemir] 5 unit SQ HS #1 vial Lancets [Blood Lancets] 1 each MC DAILY #30 each levoFLOXacin [Levaquin] 750 mg PO DAILY #10 tablet Mirtazapine [Remeron] 15 mg PO HS #30 tablet SitaGLIPtin [Januvia] 100 mg PO DAILY #60 tablet Syrge-Ndl,Ins 0.3 ml Half Estevan [Insulin Syringe] 1 each MC DAILY #60 disp.syrin Home Medications: Albuterol Sulfate [Ventolin Hfa] 2 puff IH QID PRN 03/01/18 [History] Aspirin Enteric Coated [Aspirin EC] 81 mg PO DAILY #30 tablet. 03/06/18 [Rx] Atorvastatin [Lipitor] 40 mg PO HS #30 tablet 03/06/18 [Rx] Blood Sugar Diagnostic [Glucose Test Strip] 1 each MC DAILY #60 strip 03/06/18 [ Rx] Blood-Glucose Meter [Blood Glucose Monitoring] 1 each DAILY #1 kit 03/06/18 [ Rx] Duloxetine HCl [Cymbalta] 60 mg PO DAILY #30 capsule. 03/06/18 [Rx] Fluticasone/Umeclidin/Vilanter [Trelegy Ellipta 100-62.5-25] 1 each DAILY #1 blst.w.dev 03/06/18 [Rx] Gabapentin [Neurontin] 400 mg PO BID #60 capsule 03/06/18 [Rx] Insulin DETEMIR [Levemir] 5 unit SQ HS #1 vial 03/06/18 [Rx] Lancets [Blood Lancets] 1 each DAILY #30 each 03/06/18 [Rx] Mirtazapine [Remeron] 15 mg PO HS #30 tablet 03/06/18 [Rx] SitaGLIPtin [Januvia] 100 mg PO DAILY #60 tablet 03/06/18 [Rx] Syrge-Ndl,Ins 0.3 ml Half Estevan [Insulin Syringe] 1 each MC DAILY #60 disp.syrin 03/06/18 [Rx] amLODIPine [Norvasc] 5 mg PO DAILY #30 tablet 03/06/18 [Rx] levoFLOXacin [Levaquin] 750 mg PO DAILY #10 tablet 03/06/18 [Rx] Allergies/Adverse Reactions: 3 Allergy/AdvReac Type Severity Reaction Status Date / Time No Known Allergies Allergy Verified 11/29/16 15:07 Certification: Further, I certify that my clinical findings support that this patient is homebound (i.e. absences from home require considerable and taxing effort and are for medical reasons or taoist services or infrequently or short duration when for other reasons) because: Homebound Reason: Patient requires assistance of a person or device to safely leave home Attestation: My signature below is to certify that this patient is under my care and that I, or nurse practitioner, or a physician's assistant loan processor working with me, has a face-to -face encounter with this patient.
--- NOTE | 2018-03-06 14:11 | Physician Discharge Referral ---
Home Health/Hosp Referral Info Transfer to: Home Health Attending Provider: Gonzalo Wyatt Provider in Charge Post Discharge: PCP - Diagnosis (1) DKA (diabetic ketoacidoses) Priority: Primary Status: Resolved (2) HTN (hypertension) Priority: Secondary Status: Chronic (3) History of CVA (cerebrovascular accident) Priority: Secondary Status: Chronic (4) COPD (chronic obstructive pulmonary disease) Priority: Secondary Status: Chronic (5) GERD (gastroesophageal reflux disease) Priority: Secondary Status: Chronic (6) DVT prophylaxis Priority: Primary Status: Resolved (7) Newly diagnosed diabetes Priority: Primary Status: Acute (8) UTI (urinary tract infection) Priority: Primary Status: Suspected (9) Abdominal pain Priority: Primary Status: Resolved - Respiratory Orders Smoking Cessation: Smoking cessation has been advised. For more information, call the [employer] Quit Line at 6-108-BRFH-NOW. - Diet/Nutrition Diet/Nutrition Orders: Cardiac, No Concentrated Sweets - Activity Activity Orders: Up ad lisa - Services Needed Following services are medically necessary services: Nursing (7 days nursing for diabetes education and monitoring), Home Health Aide, Physical Therapy - Transfer Medications Prescriptions: amLODIPine [Norvasc] 5 mg PO DAILY #30 tablet Aspirin Enteric Coated [Aspirin EC] 81 mg PO DAILY #30 tablet. Atorvastatin [Lipitor] 40 mg PO HS #30 tablet Blood Sugar Diagnostic [Glucose Test Strip] 1 each MC DAILY #60 strip Blood-Glucose Meter [Blood Glucose Monitoring] 1 each MC DAILY #1 kit Duloxetine HCl [Cymbalta] 60 mg PO DAILY #30 capsule. Fluticasone/Umeclidin/Vilanter [Trelegy Ellipta 100-62.5-25] 1 each IH DAILY #1 blst.w.dev Gabapentin [Neurontin] 400 mg PO BID #60 capsule Insulin DETEMIR [Levemir] 5 unit SQ HS #1 vial Lancets [Blood Lancets] 1 each MC DAILY #30 each levoFLOXacin [Levaquin] 750 mg PO DAILY #10 tablet Mirtazapine [Remeron] 15 mg PO HS #30 tablet SitaGLIPtin [Januvia] 100 mg PO DAILY #60 tablet Syrge-Ndl,Ins 0.3 ml Half Estevan [Insulin Syringe] 1 each MC DAILY #60 disp.syrin Home Medications: Albuterol Sulfate [Ventolin Hfa] 2 puff IH QID PRN 03/01/18 [History] Aspirin Enteric Coated [Aspirin EC] 81 mg PO DAILY #30 tablet. 03/06/18 [Rx] Atorvastatin [Lipitor] 40 mg PO HS #30 tablet 03/06/18 [Rx] Blood Sugar Diagnostic [Glucose Test Strip] 1 each DAILY #60 strip 03/06/18 [ Rx] Blood-Glucose Meter [Blood Glucose Monitoring] 1 each DAILY #1 kit 03/06/18 [ Rx] Duloxetine HCl [Cymbalta] 60 mg PO DAILY #30 capsule. 03/06/18 [Rx] Fluticasone/Umeclidin/Vilanter [Trelegy Ellipta 100-62.5-25] 1 each DAILY #1 blst.w.dev 03/06/18 [Rx] Gabapentin [Neurontin] 400 mg PO BID #60 capsule 03/06/18 [Rx] Insulin DETEMIR [Levemir] 5 unit SQ HS #1 vial 03/06/18 [Rx] Lancets [Blood Lancets] 1 each DAILY #30 each 03/06/18 [Rx] Mirtazapine [Remeron] 15 mg PO HS #30 tablet 03/06/18 [Rx] SitaGLIPtin [Januvia] 100 mg PO DAILY #60 tablet 03/06/18 [Rx] Syrge-Ndl,Ins 0.3 ml Half Estevan [Insulin Syringe] 1 each DAILY #60 disp.syrin 03/06/18 [Rx] amLODIPine [Norvasc] 5 mg PO DAILY #30 tablet 03/06/18 [Rx] levoFLOXacin [Levaquin] 750 mg PO DAILY #10 tablet 03/06/18 [Rx] Allergies/Adverse Reactions: 3 Allergy/AdvReac Type Severity Reaction Status Date / Time No Known Allergies Allergy Verified 11/29/16 15:07 Certification: Further, I certify that my clinical findings support that this patient is homebound (i.e. absences from home require considerable and taxing effort and are for medical reasons or [employer] services or infrequently or short duration when for other reasons) because: Homebound Reason: Patient requires assistance of a person or device to safely leave home Attestation: My signature below is to certify that this patient is under my care and that I, or nurse practitioner, or a physician's assistant professor of history working with me, has a face-to -face encounter with this patient.
[2018-03-06] MEDS ORDERED: *HR* GlipiZIDE XL (24 HR) 2.5 MG TABLET PO ONE (14:36)
[2018-03-07] MEDS ORDERED: *HR* GlipiZIDE XL (24 HR) 2.5 MG TABLET PO SCH (08:00)
== END 2018-03-06 15:12 | disposition home health service (06) | DRG 638 ==
LOC: 2NNU → SUATTDRO 18:02
PROVIDERS: ADMIT Student in an Organized Health Care Education/Training Program; ATTEND Internal Medicine

== ENCOUNTER 2020-01-06 23:34 | Observation (INO) ==
[2020-01-07] MEDS ORDERED: Ipratropium/Albuterol Neb 3 ML IH PRN (02:58)
[2020-01-07] MEDS ORDERED: Nitroglycerin 0.4 MG TAB.SUBL SL PRN (03:50)
[2020-01-07] MEDS ORDERED: Morphine Sulfate 2 MG/ML SYRINGE IVP PRN (04:00)
[2020-01-07] MEDS ORDERED: *HR* Dextrose 50 % in Water (Vial) 50 ML VIAL IVP PRN (04:33)
[2020-01-07] MEDS ORDERED: Dextrose Gel 15 GM/37.5 ML TUBE PO PRN ×2 (04:33)
[2020-01-07] MEDS ORDERED: D5% in Water 1,000 ML IVC PRN (04:33)
[2020-01-07 04:52] LABS: Basophils % 0.4 %; Eosinophils % 0.1 %; Hemoglobin 16.7 g/dL (12.9-16.9); Immature Granulocytes % 0.3 % (0-4); Lymphocytes # 2.4 K/mcL (0.6-4.6); Lymphocytes % 21.3 %; Mean Corpuscular HGB Conc 33.4 g/dL (31.6-35.5); Mean Corpuscular Hemoglobin 30.1 pg (28.0-33.3); Mean Corpuscular Volume 90.3 fL (83.0-100.0); Mean Platelet Volume 9.9 fL (9.4-12.4); Monocytes # 0.1 K/mcL (0.0-1.3); Monocytes % 0.8 %; Neutrophils # 8.5 K/mcL (1.6-8.9); Platelet Count 277 K/mcL (140-400); Red Blood Count 5.54 M/mcL (4.19-5.50); Red Cell Distribution Width 15.7 % (11.5-14.5); Segmented Neutrophils % 77.1 %; White Blood Count 11.1 K/mcL (4.3-11.1)
[2020-01-07 05:10] LABS: Alanine Aminotransferase 209 Units/L (7-52); Albumin 4.1 g/dL (3.5-5.7); Albumin/Globulin Ratio 1.6 (1.1-2.2); Alkaline Phosphatase 126 Units/L (34-104); Aspartate Amino Transferase 378 Units/L (13-39); BUN/Creatinine Ratio 16 (6-26); Bilirubin,Total 0.4 mg/dL (0.3-1.0); Blood Urea Nitrogen 12 mg/dL (8-23); Calcium 8.9 mg/dL (8.6-10.3); Carbon Dioxide 20 mEq/L (23-29); Chloride 106 mEq/L (98-107); Globulin 2.6 g/dL (2.4-3.5); Glucose 172 mg/dL (70-105); Osmolality,Calculated 288 (280-300); Potassium 4.1 mEq/L (3.5-5.1); Sodium 137 mEq/L (136-145); Total Protein 6.7 g/dL (6.4-8.9); eGFR For African Americans > 60 (> 60); eGFR For Non-African Americans > 60 (> 60)
[2020-01-07] MEDS: Insulin LISPRO 300 UNITS/3 ML VIAL SQ SCH ×2 (05:35→11:45)
[2020-01-07] MEDS ORDERED: *HR* Heparin 5,000 UNIT/ML VIAL SQ SCH (06:00)
[2020-01-07] MEDS ORDERED: Regadenoson 0.4 MG/5 ML SYRINGE IVP ONE (06:57)
[2020-01-07 08:27] LABS: Estimated Average Glucose 128 mg/dl; Hemoglobin A1C 6.1 %
[2020-01-07 09:19] LABS: Amphetamine Screen,Urine Negative ng/mL (Cutoff=1000); Barbiturate Screen,Urine Negative ng/mL (Cutoff=200); Benzodiazepines Screen,Urine Negative ng/mL (Cutoff=200); Cannabinoid Screen,Urine Negative ng/mL (Cutoff = 50); Cocaine Screen,Urine Negative ng/mL (Cutoff= 300); Opiate Screen,Urine Positive ng/mL (Cutoff=300); Phencyclidine Screen,Urine Negative ng/mL (Cutoff=25)
[2020-01-07 09:48] LABS: Hepatitis B Surface Antigen Nonreactive (Nonreactive)
[2020-01-07 10:18] LABS: Hepatitis A Antibody IgM Nonreactive (Nonreactive); Hepatitis B Core IgM Nonreactive (Nonreactive); Hepatitis C Virus Antibody Nonreactive (Nonreactive)
[2020-01-07 12:39] VITALS: BP 107/61
== END 2020-01-07 17:24 | disposition home or self-care (01) ==
LOC: 3BNU → SUATTDRO 01-07 00:52
PROVIDERS: ADMIT Internal Medicine; ATTEND Internal Medicine